=== PATIENT | female | born 1985 | race Two or more races ===

== ENCOUNTER 2022-05-22 17:19 | Inpatient (IN) | payer OTHER ==
[~2022-05-22] VITALS: Ht 180.3 cm; Wt 98.4 kg
--- NOTE | 2022-05-22 17:47 | NUR ---
PATIENT IS RECIEVED SAYING THAT SHE HAS BEEN HAVING EPIGASTRIC PAIN FOR THREE DAYS. PATIENT DENIES VOMITTING.
--- NOTE | 2022-05-22 19:26 | NUR ---
FEMINA DE 36 [address] VALDIVIA. PTE SE ORIENTA Y VERBALIZA QUE ACCEPTA. SE EJECUTA ORDEN MEDICA EN ARMAS TOTALIDAD. PENDIENTE A RESULTADOS DE LAB
--- NOTE | 2022-05-23 03:56 | NUR ---
SE ORIENTA PTE SOBRE KARINA DE MUESTRAS Y ADM. DE MEDICAMENTOS MASTER ORDEN MEDICA. SE ORIENTA SOBRE MUESTRA DE SPUTUM CULTURE PTE REFIERE QUE NO EXPECTORA.
--- NOTE | 2022-05-23 04:44 | NUR ---
PERSONAL DE TERAPIA RESPIRATORIA OFRECE LA MISMA A PACIENTE.
--- NOTE | 2022-05-23 07:22 | NUR ---
SE RECIBE PTE FEMENINA DE 36 YRS ALERTA CONCIENTE Y TRANAUILA SE MANTIENE CON IVF'S PATENTE Y LIRBE DE EDEMA. SE MANTIENE AL MONENTO LISSET DE DOLOR . SE MANTIENE CONSULTADA CON EL TAZ MENDEZ . SE MANTIENE BAJO OBSRVACION.
== END 2022-05-29 15:50 | disposition home or self-care (01) | DRG 194 ==
LOC: ER 17:19 → SURG 05-23 11:26 → SEC-K 05-23 11:26 → SURG 05-24 00:19
PROVIDERS: ADMIT Internal Medicine; ATTEND Internal Medicine
PROC: BW21ZZZ Computerized Tomography (CT Scan) of Abdomen and Pelvis (ICD-10-PCS; 2022-05-23)
PROC: 30233N1 Transfusion of Nonautologous Red Blood Cells into Peripheral Vein, Percutaneous Approach (ICD-10-PCS; principal; 2022-05-28)
DX: J16.8 Pneumonia due to other specified infectious organisms (principal); A39 Meningococcal infection; E87.20 Acidosis, unspecified; N17.8 Other acute kidney failure; D63.1 Anemia in chronic kidney disease; Z20.828 Contact with and (suspected) exposure to other viral communicable diseases; N18.9 Chronic kidney disease, unspecified; E10.9 Type 1 diabetes mellitus without complications; Z20.822 Contact with and (suspected) exposure to COVID-19